=== PATIENT | male | born 1980 | race Caucasian/White ===

== ENCOUNTER 2023-02-03 12:04 | Outpatient (CLI) | payer BC | END 2023-02-03 12:05 | disposition home or self-care (01) | LOC: CSHRAD 12:04 | PROVIDERS: ATTEND Student in an Organized Health Care Education/Training Program | DX: R05.3 Chronic cough (principal) | CPT/HCPCS: 71046 ==

== ENCOUNTER 2023-02-22 08:42 | Emergency (ER) | payer BC ==
[2023-02-22] MEDS ORDERED: Ondansetron PF 4 MG/2 ML Vial ONE (09:13)
[2023-02-22] MEDS ORDERED: Ketorolac Tromethamine 30 MG/ML VIAL ONE (09:13)
[2023-02-22 09:16] LABS: Bilirubin Neg (Negative); Blood, Urine 25 (Negative); Clarity Clear (Clear); Glucose, Urine (Dipstick) Normal (Negative); Ketone, Urine Negative (Negative); Leukocyte Negative (Negative); Nitrite Negative (Negative); Protein, Urine (Dipstick) 15 mg/dl (Neg-Trace); Specific Gravity, Urine 1.025 (1.005-1.030); Urobilinogen Normal mg/dL (Less than 2)
[2023-02-22 09:18] LABS: #Eosinphils 0.1 10x3/uL (0.0-0.5); #Monocytes 0.6 10x3/uL (0.0-1.1); %Basophils 0.3 % (0.0-2.0); %Eosinophils 0.7 % (0.0-6.0); %Lymphocytes 9.7 % (18.0-47.0); %Monocytes 3.9 % (0.0-10.0); Hemoglobin 15.6 g/dL (13.5-17.5); Mean Corpuscular HGB CONC 34.7 g/dL (32.0-36.0); Mean Corpuscular Hemoglobin 30.8 pg (27.0-33.0); Mean Corpuscular Volume 88.9 fl (81.2-95.1); Mean Platelet Volume 8.5 fl (7.4-10.4); Platelet Count 349 10x3/uL (150-450); RBC Distribution Width 12.5 % (11.5-14.5); Red Blood Cell (RBC) Count 5.06 10x6/uL (4.32-5.72); White Blood Cell (WBC) Count 15.3 10x3/uL (3.5-10.5)
[2023-02-22 09:34] LABS: ALT (SGPT) 51 U/L (8-55); AST (SGOT) 28 U/L (5-34); Albumin 5.2 g/dL (3.5-5.0); Alkaline Phosphatase 49 U/L (40-110); Anion Gap 18 mmol/L (10-20); BUN (Urea Nitrogen) 23 mg/dL (8.9-20.6); Bilirubin, Total 0.6 mg/dL (0.2-1.2); Calc. Creatinine Clearance 0 mL/min (70-130); Calcium 10.3 mg/dL (7.8-10.44); Carbon Dioxide 20 mmol/L (22-29); Chloride 107 mmol/L (98-107); Estimated GFR 50; Globulin 3.3 g/dL (2.4-3.5); Glucose 108 mg/dL (70-105); Lipase 20 U/L (8-78); Potassium 4.3 mmol/L (3.5-5.1); Protein, Total 8.5 g/dL (6.0-8.3); Sodium 141 mmol/L (136-145)
[2023-02-22 09:43] LABS: Bacteria/HPF Rare-Few HPF (None Seen); CAUTI Indications for Culture Pelvic or flank pain; RBC/HPF 0-3 HPF (0-3); Squamous Epithelial 0-3 HPF (0-3); WBC/HPF 0-3 HPF (0-3)
[2023-02-22 09:44] LABS: Urine Culture Reflex No No
[2023-02-22] MEDS ORDERED: Morphine 4 MG/ML VIAL ONE (10:45)
[2023-02-22] MEDS ORDERED: Morphine 2 MG/ML VIAL ONE (10:47)
[2023-02-22] MEDS ORDERED: HYDROcodone/Acetaminophen 5/325 mg Tablet ONE (11:55)
== END 2023-02-22 12:17 | disposition home or self-care (01) ==
LOC: CSHERS 08:42
DX: N13.2 Hydronephrosis with renal and ureteral calculous obstruction (principal)
CPT/HCPCS: 74176; 80053; 81001; 83690; 85025; 96361; 96374; 96375; J1885; J2270; J2272; J2405